=== PATIENT | female | born 1955 | race Caucasian/White ===

== ENCOUNTER → 2016-08-24 | Outpatient (CLI) | payer OTHER ==
[~2016-08-24] MED LIST: ALBU1NEB10 INH; ASPI-390 PO; ATOR-22 PO; ATRINSX INH; BUPR-267 PO; CETI10TA10 PO; CITA20TA4 PO; DOCU100T PO; FLUT0.0529 NAE; FURO-85 PO; IMT100 PO; LEVO150T9 PO; POLY335025; PRLSR20 PO; TRAM-10 PO
[2016-08-24 17:30] LABS: ALT/SGPT 25 U/L (12-78); AST/SGOT 16 U/L (15-37); BLOOD UREA NITROGEN 16 mg/dl (7-18); BUN/CREATININE RATIO 15.5 (10-20); CALCIUM 9.7 mg/dl (8.5-10.1); CARBON DIOXIDE 26 mmol/L (21-32); CHLORIDE 104 mmol/L (98-107); CHOLESTEROL 208 mg/dl (0-200); GLUCOSE 81 mg/dl (70-99); POTASSIUM 3.9 mmol/L (3.5-5.1); SODIUM 140 mmol/L (136-145); TRIGLYCERIDES 126 mg/dl (0-150); VERY LOW DENSITY LIPOPROT CALC 25 mg/dl
[2016-08-24 17:40] LABS: ALB/GLOB RATIO 1.2 (0.9-2); ALKALINE PHOSPHATASE 98 U/L (45-117); CHOLESTEROL/HDL RATIO 3.4; HDL CHOLESTEROL 61 mg/dl; LDL CHOLESTEROL CALCULATED 122 mg/dl; THYROID STIMULATING HORMONE 0.139 uIu/ml (0.300-4.500)
== END | disposition home or self-care (01) ==
LOC: C.LABBFT 11:49
PROVIDERS: ATTEND Nurse Practitioner
DX: E03.9 Hypothyroidism, unspecified (principal); E78.00 Pure hypercholesterolemia, unspecified

== ENCOUNTER → 2016-10-10 | Outpatient (CLI) | payer OTHER ==
[2016-10-10 18:10] LABS: THYROID STIMULATING HORMONE 0.26 uIu/ml (0.300-4.500)
== END | disposition home or self-care (01) ==
LOC: C.LABBFT 13:40
PROVIDERS: ATTEND Physician Assistant Medical
DX: E03.9 Hypothyroidism, unspecified (principal)

== ENCOUNTER → 2017-03-06 | Outpatient (CLI) | payer OTHER ==
[2017-03-06 17:52] LABS: BASO % 0.3 %; BASO ABS # 0.02 K/uL (0-0.2); COMPLETE YES; EOS % 2.4 %; HEMATOCRIT 47.1 % (37-47); IG% 0.3 %; LYMPH % 30.6 %; LYMPH ABS # 1.77 K/uL (1.2-3.4); MEAN CELL VOLUME 92.2 fL (80-100); MEAN CORPUSCULAR HEMOGLOBIN 29.9 pg (25-34); MEAN CORPUSCULAR HGB CONC 32.5 g/dl (32-36); MEAN PLATELET VOLUME 10.5 fL (7.4-10.4); MONO % 10.2 %; NEUT % 56.2 %; PLATELET COUNT 298 K/uL (130-400); RED BLOOD COUNT 5.11 M/uL (4.2-5.4); WHITE BLOOD COUNT 5.79 K/uL (4.8-10.8)
[2017-03-06 18:08] LABS: BLOOD UREA NITROGEN 21 mg/dl (7-18); BUN/CREATININE RATIO 18.6 (10-20); CALCIUM 9.8 mg/dl (8.5-10.1); CARBON DIOXIDE 30 mmol/L (21-32); CHLORIDE 105 mmol/L (98-107); GLUCOSE 73 mg/dl (70-99); POTASSIUM 4.1 mmol/L (3.5-5.1); SODIUM 140 mmol/L (136-145)
[2017-03-06 18:18] LABS: THYROID STIMULATING HORMONE 0.926 uIu/ml (0.300-4.500)
== END | disposition home or self-care (01) ==
LOC: C.LABBFT 10:59
PROVIDERS: ATTEND Nurse Practitioner
DX: E03.9 Hypothyroidism, unspecified (principal); N64.52 Nipple discharge

== ENCOUNTER → 2017-03-06 | Outpatient (CLI) | payer OTHER | END | disposition home or self-care (01) | LOC: C.LABSPEC 12:26 | PROVIDERS: ATTEND Nurse Practitioner | DX: N64.52 Nipple discharge (principal) ==

== ENCOUNTER → 2017-03-09 | Outpatient (CLI) | payer OTHER ==
--- NOTE | 2017-03-09 13:23 | MAMMOGRAPHY REPORT ---
BILATERAL DIGITAL DIAGNOSTIC MAMMOGRAM TOMOSYNTHESIS WITH CAD AND TARGETED RIGHT ULTRASOUND: 03/09/2017 CLINICAL HISTORY: The patient reports an episode of rust- colored right nipple discharge a few days a go. She has had no further episodes since then. She denies any left nipple discharge or palpable wale mps. The patient also reports right breast tenderness for a long time, which she attributed to exerc ising. History of bilateral reduction mammoplasty. TECHNIQUE: Breast tomosynthesis in addition to standard 2D mammography was performed. Current study was also evaluated with a Computer Aided Detection (CAD) system. Bilateral CC and MLO 2-D and tomosy nthesis images and spot magnification right cc and ML views were obtained. COMPARISON: Comparison is made to exams dated: 03/23/2016 mammogram, 10/09/2014 mammogram, 05/20/2012 m ammogram, 05/22/2011 mammogram, 05/25/2010 ultrasound, and 05/25/2010 mammogram - [facility]. BREAST COMPOSITION: There are scattered areas of fibroglandular density in both breasts. FINDINGS: There are no suspicious masses, calcifications, or areas of architectural distortion noted in either breast mammographically. There has been no significant interval change compared to prior exams. There are stable postsurgical changes from bilateral reduction mammoplasty. Bilateral asymme tries and scattered bilateral benign-appearing calcifications are stable. Linear scar markers denote scars on bilateral breasts. Targeted ultrasound was performed of the right subareolar breast to evaluate for a possible intraduct al mass. The patient reports that the bloody discharge arose from the lower aspect of the nipple. T he breast tissue is markedly heterogeneous on ultrasound which reduces the sensitivity of the exam. In the right 7:00 periareolar breast, there is an oval partially hypoechoic and partially anechoic ma ss which measures 2 x 3 x 6 mm. Immediately adjacent to this is an oval hypoechoic circumscribed 4 x 2 mm solid appearing mass. Papillomas cannot be excluded therefore ultrasound guided biopsy of the masses is recommended for further evaluation (the masses are immediately adjacent to each other and c ould be sampled at the same time). Another possible isoechoic mass versus normal tissue measuring 3 x 4 mm is seen within the right 12:00 periareolar breast. Targeted ultrasound was performed of areas of pain pointed out by the patient in the right 1 and 8:00 breast, which show no suspicious masses o r other suspicious sonographic abnormalities. IMPRESSION: ACR BI-RADS CATEGORY 4: SUSPICIOUS, TARGETED ULTRASOUND ACR BI-RADS CATEGORY 4: SUSPICIO US 1. Two adjacent 6 and 4 mm hypoechoic masses in the right 7:00 periareolar breast. The masses are in determinate in the setting of bloody nipple discharge and therefore ultrasound guided biopsy is recom mended for further evaluation (the two masses can be sampled at the same time given that they are imm ediately adjacent to each other). If the masses do not yield papillomas and therefore do not account for bloody discharge, then further evaluation may be needed including surgical consultation and/or M RI. 2. No suspicious mammographic or sonographic abnormality to explain right breast pain. Recommend cl inical follow-up. 3. No mammographic evidence of malignancy in the left breast. A phone call was made to the physician's office to confirm faxed results were received. The patient has been verbally notified of the results. She tentatively scheduled the biopsy before leaving the [facility]. Approximately 10% of breast cancers are not detected with mammography. A negative mammographic report should not delay biopsy if a clinically suggestive mass is present. Maddie Wallace M.D. ah/:03/09/2017 12:08:51 Adon: Damaris Chavez, [facility] letter sent: Abnormal 4/5 BI-RADS Code: ACR BI-RADS Category 4: Suspicious Ultrasound BI-RADS: ACR BI-RADS Category 4: Suspici ous
== END | disposition home or self-care (01) ==
LOC: C.MAMM 08:09
PROVIDERS: ATTEND Nurse Practitioner
DX: N64.52 Nipple discharge (principal); N63 Unspecified lump in breast

== ENCOUNTER → 2017-03-15 | Outpatient (CLI) | payer OTHER | END | disposition home or self-care (01) | LOC: C.PAPS 14:02 | PROVIDERS: ATTEND Nurse Practitioner | DX: Z12.4 Encounter for screening for malignant neoplasm of cervix (principal) ==

== ENCOUNTER → 2017-03-20 | Outpatient (CLI) | payer OTHER ==
--- NOTE | 2017-03-20 09:26 | Discharge Instructions ---
Discharge Instructions Procedure Procedure Date: Mar 20, 2017. Reason for visit: Right Mass. Discharge Discharge Date: Mar 20, 2017. Discharge Diagnosis: post right breast ultrasound guided core biopsy Instructions Activity Recommendations: Additional Limitations (see below) Return to School/Work: no limitations Recommended Home Diet: No Limitations Provider Instructions: ACTIVITY RECOMMENDATIONS: * No lifting, pushing, pulling or exercising the affected side for three days. RETURN TO SCHOOL/WORK: * You may return to work/school after the procedure, but do not perform any strenuous activities for 24 to 48 hours. MEDICATIONS: * In the first 24 hours, take Tylenol (two 325 mg) every four to six hours if needed for mild pain (if not allergic to Tylenol). Also use ice pack in the first 24 hours. * On days 2, 3, 4 etc., take ibuprofen for pain and heat. DIET: * Resume previous diet. SPECIAL CARE INSTRUCTIONS: * Keep biopsy site dry for 24 hours. May shower after 24 hours, but do not soak (bathe) incision. * May remove Tegaderm (plastic patch) tomorrow AFTER showering. * Leave the steri-strips on for one week. Allow the steri-strips to fall off by themselves. If not off after one week, you may remove them. You may place a Bandaid crosswise over the strips, if desired. * Apply ice 10 minutes on and 10 minutes off as needed. * Wear a bra at bedtime to sleep more comfortably for 2-3 days. * Your referring physician should have the results after approximately 5 to 7 business days. * Call for unusual bleeding, fever, drainage, etc or if you have any questions call [phone] during normal business hours or after hours call Dr Keane, . FOLLOW UP VISIT: Follow-up with Referring Physician as scheduled. Allergies Coded Allergies: Penicillins (Verified Allergy, Unknown, 06/07/10) Sulfa Drugs (Verified Allergy, Unknown, 06/07/10) Uncoded Allergies: ANALG/ANTIPYRET (Allergy, Mild, 09/10/09) ?PAIN MED [place] Recommendations: Call your doctor if: * Temperature above 101 degrees * Pain not relieved by pain medicine ordered * There is increased drainage or redness from any incision * You have any unanswered questions or concerns. Your Doctors Instructions noted above were prepared by provider Ana Rosa Keane. Patient Signature Section: Patient Instructions Signature Page Елена Flores Patient (or Guardian) Signature/Date: I have read and understand the instructions given to me by my caregivers. Caregiver/RN/Doctor Signature/Date: The above-named patient and/or guardian has received patient instructions on this date. + Original Patient Signature Page (only) stays with chart. Please make copy for patient.
--- NOTE | 2017-03-20 14:36 | MAMMOGRAPHY REPORT ---
THIS REPORT HAS BEEN AMENDED. ULTRASOUND GUIDED BIOPSY RIGHT BREAST: 03/20/2017 CLINICAL HISTORY: 61-year-old woman with a history of bloody right nipple discharge presents for biop sy of 2 adjacent hypoechoic subcentimeter masses in the 7:00 periareolar right breast. COMPARISON: Comparison is made to exams dated: 03/09/2017 ultrasound, 03/09/2017 mammogram, 03/23/2016 ma mmogram, 10/09/2014 mammogram, 05/20/2012 mammogram, and 05/22/2011 mammogram - [facility]. PATIENT CONSENT: The procedure, risks and benefits were discussed with the patient and informed conse nt was obtained both verbally and in writing. Specific risks to this procedure include: bleeding, in fection, puncture of adjacent structure, nontarget biopsy, sampling error, pain, metal allergy and me dication reaction. PROCEDURE DESCRIPTION: A time out was performed and the right breast was agreed as the site of biopsy . The skin was prepped and draped in the usual sterile fashion. The 2 adjacent hypoechoic possible in traductal masses in the 7:00 periareolar right breast was chosen as the target for biopsy. Subcutaneo us and intraparenchymal 1% buffered lidocaine, with and without epinephrine, was administered as loca l anesthesia. A skin incision was made. Through the incision, 2 samples were taken with a 12 gauge C elero biopsy device. After the first biopsy pass there is a large amount of bleeding and the biopsy target was mostly obscured. A second biopsy pass was taken adjacent to the tract from the first pass and then a ribbon shaped metallic marker was placed at the biopsy site. Hemostasis was achieved afte r manual compression. The patient tolerated the procedure well and there was no immediate complicatio n. The samples were sent to the pathology department in an appropriately labeled container. Postprocedure right CC and ML views were obtained. A new ribbon-shaped metallic biopsy marker is see n in the subareolar right breast. There is a 6 x 5 cm hematoma at the biopsy site. IMPRESSION: ULTRASOUND GUIDED BIOPSY Status post ultrasound guided core biopsy of a possible intraductal mass in the 7:00 periareolar righ t breast, with biopsy marker placed at the site. The 2 adjacent subcentimeter hypoechoic possible in traductal masses were obscured due to bleeding during the biopsy. Pending pathology results, additio nal workup may be needed to determine the origin of the symptom of bloody nipple discharge and furthe r recommendations will be made when pathology results are available. The patient will receive notification of the results from her referring physician. Ana Rosa Keane M.D. ay/:03/20/2017 09:41:17 Financial Aid Manager: Ameena SHIELDS (R)(Elder), [facility] AMENDMENT: 03/28/2017 Ana Rosa Keane M.D. Pathology results from the ultrasound-guided core biopsy of a possible intraductal mass within 2 monik cent prominent ducts in the 7:00 periareolar right breast yielded fibrocystic change with apocrine me taplasia. No tumor is seen. The pathology results could be concordant with the imaging appearance. However, these findings do not explain the reported single episode of reddish brownish right nipple discharge. Clinical follow-up is therefore needed and if the nipple discharge persists, consider misti gical consultation versus breast MRI for definitive characterization.
--- NOTE | 2017-03-20 14:36 | MAMMOGRAPHY REPORT ---
UNILATERAL RIGHT DIGITAL DIAGNOSTIC MAMMOGRAM TOMOSYNTHESIS: 03/20/2017 CLINICAL HISTORY: Status post ultrasound guided core biopsy in the 7:00 periareolar right breast. Jayden hurtado has a history of right nipple discharge. Please refer to the report from right breast ultrasound guided core biopsy performed at the same time for full detail. IMPRESSION: POST PROCEDURE IMAGING FOR MARKER PLACEMENT Please refer to the report from right breast ultrasound guided core biopsy performed at the same time for full detail. Approximately 10% of breast cancers are not detected with mammography. A negative mammographic report should not delay biopsy if a clinically suggestive mass is present. Ana Rosa Keane M.D. ay/:03/20/2017 09:27:13 Salesperson Wigs: Ameena SHIELDS(Robert)(Elder), [facility] BI-RADS Code: Post Procedure Imaging For Marker Placement
== END | disposition home or self-care (01) ==
LOC: C.MAMM 08:32
PROVIDERS: ATTEND Nurse Practitioner
DX: R92.8 Other abnormal and inconclusive findings on diagnostic imaging of breast (principal); N63 Unspecified lump in breast

== ENCOUNTER → 2017-04-06 | Outpatient (CLI) | payer OTHER ==
[2017-04-06 12:32] LABS: BLOOD UREA NITROGEN 21 mg/dl (7-18); CREATININE 0.96 mg/dl (0.60-1.20)
== END | disposition home or self-care (01) ==
LOC: C.LABBFT 08:31
PROVIDERS: ATTEND Physician Assistant Medical
DX: I10 Essential (primary) hypertension (principal); N64.52 Nipple discharge; N64.4 Mastodynia

== ENCOUNTER → 2017-04-10 | Outpatient (CLI) | payer OTHER ==
[~2017-04-10] MED LIST changes: +GADAVIST IV PRN
--- NOTE | 2017-04-11 13:50 | MAMMOGRAPHY REPORT ---
BREAST MRI OF BOTH BREASTS : 04/10/2017 CLINICAL HISTORY: 62-year-old woman who initially presented with rust colored right nipple discharge. She underwent diagnostic workup and subsequent biopsy which yielded benign pathology results. Martinez tu, no explanation for the nipple discharge and she presents for further assessment with breast MRI. COMPARISON: Comparison is made to exams dated: 03/20/2017 ultrasound biopsy, 03/09/2017 ultrasound, 03/09 mammogram, 03/23/2016 mammogram, 10/09/2014 mammogram, and 05/20/2012 mammogram - [facility]. TECHNIQUE: Using a 1.5 [place] magnet and dedicated breast coil, multisequence axial images were obtain ed through the breasts. After uneventful IV administration of 12.5 mL of Gadavist, dynamic multiphas e contrast-enhanced axial images, and sagittal postcontrast were obtained. Temporal subtraction axia l images and 3-D MIP images are provided. Everything was then reviewed on a 3-D workstation, [employer]. FINDINGS: Right breast: There is mild background parenchymal enhancement. Evidence of prior reduction mammopla sty. There is a multiloculated fluid collection within the anterior right breast, that is T2 hyperin tense, T1 hyperintense and nonenhancing, compatible with postbiopsy hematoma. It measures approximat juaquin 5 x 6 x 4 cm. There is mild non mass enhancement surrounding and nearly all of the locules of he matoma, which most likely represents postbiopsy change and secondary to hematoma given that pathology results were benign. Nevertheless, this lowers sensitivity for a small intraductal mass or suspicio us non-mass enhancement in the right breast. Within these limitations, no obvious enhancing mass or obvious intraductal mass is identified. No focal skin thickening or nipple retraction. No right axi llary lymphadenopathy. Left breast: There is mild background parenchymal enhancement. Evidence of prior reduction mammoplas ty. There is no evidence of a suspicious enhancing mass, suspicious non-mass enhancement, architectu ral distortion or suspicious kinetics in the left breast. No suspicious left axillary lymphadenopath y. IMPRESSION: ACR-BI-RADS CATEGORY 3: PROBABLY BENIGN 1. There is a 5 x 6 x 4 cm postbiopsy hematoma in the anterior right breast, with mild non-mass enha ncement surrounding the multiple loculations of the hematoma, most compatible with post-biopsy change . However, this lowers the sensitivity of the exam for detection of a small intraductal mass or susp icious non-mass enhancement. Although no suspicious findings are currently identified, continued cli nical follow-up is recommended. If the patient experiences any more episodes of nipple discharge, lucas rgical consultation is recommended. Otherwise, would recommend a follow-up breast MRI to ensure stab ility in 6 months. 2. No MRI evidence of malignancy in the left breast. The patient will receive written notification of the results. Ana Rosa Keane M.D. ay/:04/10/2017 17:49:54 Publisher Assistant: is technician, [facility] letter sent: Follow Up Recommended 3 BI-RADS Code: ACR-BI-RADS Category 3: Probably Benign
== END | disposition home or self-care (01) ==
LOC: C.MRI 14:01
PROVIDERS: ATTEND Physician Assistant Medical
DX: N64.4 Mastodynia (principal); N64.52 Nipple discharge; N64.89 Other specified disorders of breast

== ENCOUNTER → 2017-04-26 | Outpatient (CLI) | payer OTHER ==
[~2017-04-26] MED LIST changes: -GADAVIST IV PRN
--- NOTE | 2017-04-26 10:27 | DIAGNOSTIC IMAGING REPORT ---
THORACIC SPINE 3 VIEWS ROUTINE HISTORY: Pain M54.2 Neck [id number] COMPARISON: None. FINDINGS: Mild scoliosis. Moderate degenerative disc change throughout the entire thoracic region. No evidence for compression deformity. IMPRESSION: Moderate degenerative change. Mild scoliosis. No acute process. The above report was generated using voice recognition software. It may contain grammatical, syntax or spelling errors. Electronically signed by: Ag Han M.D. 04/26/2017 10:26 AM Dictated Date/Time: 04/26/2017 10:25 AM
--- NOTE | 2017-04-26 10:32 | DIAGNOSTIC IMAGING REPORT ---
C-SPINE ROUTINE 4 OR 5 VIEWS CLINICAL HISTORY: Neck pain. COMPARISON STUDY: No previous studies for comparison. FINDINGS: There is straightening of the normal cervical lordosis. No fracture or suspicious lesion is identified. [id number] multilevel degenerative disc disease and facet arthrosis within the cervical spine is noted. Multilevel bony neural foraminal narrowing is most pronounced at the right C5-C6 and C6-C7 neural foramen. IMPRESSION: 1. No acute cervical spine fracture or subluxation. 2. Mild to moderate multilevel degenerative disc disease and facet arthrosis of the cervical spine. 3. Moderate to severe bony neural foraminal narrowing of the right C5-C6 and C6-C7 neural foramen. Electronically signed by: Anton Glez M.D. 04/26/2017 10:31 AM Dictated Date/Time: 04/26/2017 10:29 AM
== END | disposition home or self-care (01) ==
LOC: C.RAD1850 10:02
PROVIDERS: ATTEND Nurse Practitioner
DX: M50.90 Cervical disc disorder, unspecified, unspecified cervical region (principal); M99.71 Connective tissue and disc stenosis of intervertebral foramina of cervical region

== ENCOUNTER → 2017-07-11 | Outpatient (CLI) | payer OTHER ==
[2017-07-11 12:49] LABS: ALT/SGPT 32 U/L (12-78); BLOOD UREA NITROGEN 20 mg/dl (7-18); C-REACTIVE PROTEIN 0.77 mg/dl (0-0.29); CALCIUM 9.6 mg/dl (8.5-10.1); CARBON DIOXIDE 28 mmol/L (21-32); CHLORIDE 104 mmol/L (98-107); CREATININE 0.95 mg/dl (0.60-1.20); GLUCOSE 82 mg/dl (70-99); SODIUM 137 mmol/L (136-145)
[2017-07-11 12:52] LABS: ALB/GLOB RATIO 1.2 (0.9-2); ALKALINE PHOSPHATASE 86 U/L (45-117); AST/SGOT 19 U/L (15-37)
[2017-07-11 13:20] LABS: BASO % 0.3 %; BASO ABS # 0.02 K/uL (0-0.2); COMPLETE YES; EOS % 1.7 %; HEMATOCRIT 46.2 % (37-47); IG% 0.2 %; LYMPH ABS # 1.51 K/uL (1.2-3.4); MEAN CELL VOLUME 92.6 fL (80-100); MEAN CORPUSCULAR HEMOGLOBIN 30.3 pg (25-34); MEAN CORPUSCULAR HGB CONC 32.7 g/dl (32-36); MONO % 10.5 %; NEUT % 63.3 %; PLATELET COUNT 287 K/uL (130-400); RED BLOOD COUNT 4.99 M/uL (4.2-5.4); WHITE BLOOD COUNT 6.29 K/uL (4.8-10.8)
== END | disposition home or self-care (01) ==
LOC: C.LABBFT 07:02
PROVIDERS: ATTEND Nurse Practitioner
DX: R10.84 Generalized abdominal pain (principal)

== ENCOUNTER → 2017-07-12 | Outpatient (CLI) | payer OTHER ==
[~2017-07-12] MED LIST changes: +OPTIRAY 320 IV PRN
--- NOTE | 2017-07-12 16:49 | DIAGNOSTIC IMAGING REPORT ---
CT SCAN OF THE ABDOMEN AND PELVIS WITH IV CONTRAST CLINICAL HISTORY: Generalized abdominal pain. Diarrhea. COMPARISON STUDY: Abdominal CT dated 03/09/2008. TECHNIQUE: Following the IV administration of 91 cc of Optiray 320, CT scan of the abdomen and pelvis is performed from the lung bases to the proximal femora. Images are reviewed in the axial, sagittal, and coronal planes. IV contrast was administered without complication. A dose lowering technique was utilized adhering to the principles of ALARA. The examination is degraded by large body habitus, and by streak artifact from the body wall abutting the CT gantry. CT DOSE: 1708.03 mGy.cm FINDINGS: Lung bases: The heart is normal in size and without pericardial effusion. A small calcified granuloma is incidentally noted in the left lower lobe. The lung bases are otherwise clear. Liver: The contrast-enhanced liver is top normal in size measuring 18 cm in length. The liver demonstrates diffusely diminished attenuation consistent with hepatic steatosis. There is no intrahepatic biliary ductal dilatation. The hepatic veins and portal veins are patent. Gallbladder: Surgically absent noting clips in the gallbladder fossa. Spleen: Normal in size and attenuation. Pancreas: Unremarkable. Adrenal glands: Unremarkable. Kidneys: The contrast enhanced kidneys demonstrate cortical atrophy and are without hydronephrosis. The kidneys enhance symmetrically. Abdominal vasculature: The abdominal aorta is normal in course and caliber noting scattered foci of atherosclerotic calcification. Bowel: There is mild to moderate colonic fecal retention. No bowel obstruction is seen. The appendix is well-visualized and normal. Peritoneum: There is no intraperitoneal free air or abdominal ascites. There is a fat-containing umbilical hernia. Lymphadenopathy: None. Pelvic viscera: The bladder is normal as visualized. The uterus is surgically absent. No adnexal lesion is seen. Skeletal structures: No lytic or blastic lesions are seen. Sclerotic change is noted in the sacroiliac joints. There is mild lumbosacral spondylosis. IMPRESSION: 1. There are no acute infectious or inflammatory findings in the abdomen or pelvis. 2. Hepatic steatosis. Electronically signed by: Antoine Roger M.D. 07/12/2017 4:48 PM Dictated Date/Time: 07/12/2017 4:44 PM
== END | disposition home or self-care (01) ==
LOC: C.CTS 14:15
PROVIDERS: ATTEND Nurse Practitioner
DX: R10.84 Generalized abdominal pain (principal); R19.7 Diarrhea, unspecified; K76.0 Fatty (change of) liver, not elsewhere classified

== ENCOUNTER → 2017-09-18 | Outpatient (CLI) | payer OTHER ==
[~2017-09-18] MED LIST changes: -OPTIRAY 320 IV PRN
[2017-09-18 12:51] LABS: HEMATOCRIT 48.9 % (37-47); HEMOGLOBIN 16.1 g/dL (12.0-16.0); MEAN CELL VOLUME 91.7 fL (80-100); MEAN CORPUSCULAR HEMOGLOBIN 30.2 pg (25-34); MEAN CORPUSCULAR HGB CONC 32.9 g/dl (32-36); PLATELET COUNT 291 K/uL (130-400); RED CELL DISTRIBUTION WIDTH CV 13.3 % (11.5-14.5); RED CELL DISTRIBUTION WIDTH SD 44.4 fL (36.4-46.3); WHITE BLOOD COUNT 5.99 K/uL (4.8-10.8)
[2017-09-18 13:22] LABS: ALBUMIN 3.9 gm/dl (3.4-5.0); ALKALINE PHOSPHATASE 106 U/L (45-117); ALT/SGPT 27 U/L (12-78); BLOOD UREA NITROGEN 22 mg/dl (7-18); CALCIUM 9.6 mg/dl (8.5-10.1); CARBON DIOXIDE 31 mmol/L (21-32); CHOLESTEROL 206 mg/dl (0-200); CREATININE 1.03 mg/dl (0.60-1.20); GLUCOSE 84 mg/dl (70-99); POTASSIUM 4.3 mmol/L (3.5-5.1); SODIUM 138 mmol/L (136-145)
[2017-09-18 13:33] LABS: AST/SGOT 16 U/L (15-37); LDL CHOLESTEROL CALCULATED 126 mg/dl; TOTAL PROTEIN 7.8 gm/dl (6.4-8.2)
== END | disposition home or self-care (01) ==
LOC: C.LABBFT 07:41
PROVIDERS: ATTEND Nurse Practitioner
DX: E03.9 Hypothyroidism, unspecified (principal); E78.00 Pure hypercholesterolemia, unspecified; I10 Essential (primary) hypertension

== ENCOUNTER → 2017-10-16 | Outpatient (CLI) | payer OTHER ==
[~2017-10-16] MED LIST changes: +GADAVIST IV PRN
--- NOTE | 2017-10-17 15:37 | MAMMOGRAPHY REPORT ---
BREAST MRI OF BOTH BREASTS : 10/16/2017 CLINICAL HISTORY: 62-year-old woman presents with a history of right nipple discharge, please reevalu ate. She has a history of an episode of right bloody nipple discharge in which diagnostic ultrasound noted a possible intraductal mass at the 7:00 anterior subareolar right breast which was biopsied an d yielded benign fibrocystic change. A subsequent MRI failed to demonstrate a definite intraductal m ass but there was a large postbiopsy hematoma. COMPARISON: Comparison is made to exams dated: 03/20/2017 mammogram, 03/20/2017 ultrasound biopsy, 03/09 ultrasound, 03/09/2017 mammogram, 03/23/2016 mammogram, and 10/09/2014 mammogram - [facility]. TECHNIQUE: Using a 1.5 [place] magnet and dedicated breast coil, multisequence axial images were obtain ed through the breasts. After uneventful IV administration of 13 mL of Gadavist, dynamic multiphase contrast-enhanced axial images, and sagittal postcontrast were obtained. Temporal subtraction axial images and 3-D MIP images are provided. Everything was then reviewed on a 3-D workstation, [employer]. FINDINGS: Right breast: There is minimal background parenchymal enhancement. The previously observed 5 x 6 x 4 cm postbiopsy hematoma in the anterior right breast has resolved. There is a small focus of suscept ibility artifact in the 7:00 anterior/subareolar right breast denoting the site of prior benign ultra sound-guided core biopsy. There is a tubular, branching, intrinsically T1 hyperintense nonenhancing lesion in the 6:00 anterior/subareolar right breast measuring approximately 2.6 x 1.3 cm. This could represent blood within a mildly prominent duct or could be due to prior biopsy. No definite enhancing intraductal mass is currently seen. However, correlation with the patient's clinical history is nee ded. If she is still experiencing bloody nipple discharge, surgical consultation for possible duct e xploration is recommended. No other suspicious enhancing masses, non-mass enhancement or suspicious kinetics are identified in the right breast. No focal skin thickening or nipple retraction. No susp icious right axillary lymphadenopathy. Left breast: There is minimal background parenchymal enhancement. There is no suspicious enhancing m ass, non-mass enhancement, architectural distortion or suspicious kinetics in the left breast. No fo tania skin thickening or nipple retraction. No suspicious left axillary lymphadenopathy. IMPRESSION: ACR-BI-RADS CATEGORY 3: PROBABLY BENIGN 1. A 2.6 x 1.3 cm branching tubular nonenhancing structure is noted in the 6:00 anterior/subareolar right breast which could represent blood within a mildly ectatic duct, although no intraductal enhanc ing masses currently seen. Correlation with clinical history is needed and if the patient is still e xperiencing right bloody nipple discharge, surgical consultation for possible duct exploration is rec ommended. 2. Overall, there is no definite MRI evidence of malignancy in the breasts. If the patient is no lo nger symptomatic and has not had any other episodes of bloody nipple discharge, could consider return ing to annual screening mammography, due in March 2018. The patient will receive written notification of the results. Ana Rosa Keane M.D. ay/:10/16/2017 20:06:08 [employer] Plant Maintainer: spinneret cleaner, [facility] letter sent: Follow Up Recommended 3 BI-RADS Code: ACR-BI-RADS Category 3: Probably Benign
== END | disposition home or self-care (01) ==
LOC: C.MRI 08:33
PROVIDERS: ATTEND Nurse Practitioner
DX: N64.52 Nipple discharge (principal); N64.9 Disorder of breast, unspecified

== ENCOUNTER → 2018-03-12 | Outpatient (CLI) | payer OTHER ==
[~2018-03-12] MED LIST changes: -GADAVIST IV PRN
--- NOTE | 2018-03-13 13:37 | MAMMOGRAPHY REPORT ---
BILATERAL DIGITAL SCREENING MAMMOGRAM TOMOSYNTHESIS WITH CAD: 03/12/2018 CLINICAL HISTORY: Routine screening. Patient has no complaints. TECHNIQUE: The study was acquired using full field digital technology and interpreted from soft copy. Breast tomosynthesis in addition to standard 2D mammography was performed. Current study was also ev aluated with a Computer Aided Detection (CAD) system. COMPARISON: Comparison is made to exams dated: 03/20/2017 mammogram, 03/09/2017 mammogram, 03/23/2016 ma mmogram, 10/09/2014 mammogram, 05/20/2012 mammogram, and 05/22/2011 mammogram - [facility]. BREAST COMPOSITION: There are scattered areas of fibroglandular density in both breasts. FINDINGS: Status post bilateral reduction mammoplasty. There is a stable ribbon-shaped biopsy marker clip in the right breast. There is a stable nodular glandular pattern of the breasts. No new suspi cious masses, asymmetries, calcifications or areas of architectural distortion identified bilaterally . IMPRESSION: ACR BI-RADS CATEGORY 1: NEGATIVE 1. Stable mammographic appearance of the breasts including postsurgical changes bilaterally, and a s table ribbon-shaped biopsy marker clip in the 6:00 anterior/subareolar right breast. As long as ther e are no new reported episodes of nipple discharge, would recommend bilateral screening mammography i n 1 year. (03/13/2019) The patient will receive written notification of the results. Some breast cancers are not detected with mammography. A negative mammographic report should not shelbi y biopsy if a clinically suggestive mass is present. Ana Rosa Keane M.D. ay/:03/12/2018 15:50:11 Creel Cleaner: RT Deja(R)(M), [facility] letter sent: Normal 1/2 BI-RADS Code: ACR BI-RADS Category 1: Negative
== END | disposition home or self-care (01) ==
LOC: C.MAMM 10:00
PROVIDERS: ATTEND Nurse Practitioner
DX: Z12.31 Encounter for screening mammogram for malignant neoplasm of breast (principal); Z98.890 Other specified postprocedural states

== ENCOUNTER → 2018-03-15 | Outpatient (CLI) | payer OTHER ==
[2018-03-15 17:24] LABS: BASO % 0.3 %; BASO ABS # 0.02 K/uL (0-0.2); EOS % 2.6 %; EOS ABS # 0.16 K/uL (0-0.5); HEMATOCRIT 45.7 % (37-47); HEMOGLOBIN 14.6 g/dL (12.0-16.0); IG# 0.01 K/uL (0.00-0.02); LYMPH % 24.9 %; LYMPH ABS # 1.53 K/uL (1.2-3.4); MEAN CELL VOLUME 93.6 fL (80-100); MEAN CORPUSCULAR HEMOGLOBIN 29.9 pg (25-34); MEAN CORPUSCULAR HGB CONC 31.9 g/dl (32-36); MEAN PLATELET VOLUME 10.6 fL (7.4-10.4); MONO % 9.3 %; MONO ABS # 0.57 K/uL (0.11-0.59); NEUT % 62.7 %; NEUT ABS # 3.85 K/uL (1.4-6.5); PLATELET COUNT 326 K/uL (130-400); RED CELL DISTRIBUTION WIDTH CV 13.3 % (11.5-14.5); RED CELL DISTRIBUTION WIDTH SD 45.5 fL (36.4-46.3); WHITE BLOOD COUNT 6.14 K/uL (4.8-10.8)
[2018-03-15 17:44] LABS: BLOOD UREA NITROGEN 17 mg/dl (7-18); CARBON DIOXIDE 28 mmol/L (21-32); CREATININE 1.03 mg/dl (0.60-1.20); GLUCOSE 94 mg/dl (70-99); POTASSIUM 3.8 mmol/L (3.5-5.1); SODIUM 139 mmol/L (136-145)
== END | disposition home or self-care (01) ==
LOC: C.LABBFT 12:25
PROVIDERS: ATTEND Physician Assistant Medical
DX: I10 Essential (primary) hypertension (principal); M25.50 Pain in unspecified joint

== ENCOUNTER 2023-11-01 08:28 | Observation (INO) ==
--- NOTE | 2023-09-20 13:15 | PAT Medication Instructions ---
Medication Instructions Date of Service September 20, 2023 Home Medications Medication Instructions Recorded triamcinolone acetonide 55 mcg 1 spray intranasal DAILY #16.9 mL 12/07/21 nasal spray aerosol (Nasacort) diclofenac sodium 1 % topical gel 2 g topical QID PRN pain #800 grams 12/21/21 dicyclomine 10 mg capsule 10 - 20 mg (1 - 2 x 10 mg) PO Q4H 02/14/22 PRN IBS #360 caps atorvastatin 40 mg tablet 40 mg PO QAM #90 tabs 12/04/22 furosemide 20 mg tablet 20 mg PO QAM #90 tabs 12/04/22 sucralfate 100 mg/mL oral 10 ml PO QID PRN abdominal 12/21/22 suspension (Carafate) discomfort #1,260 mL levothyroxine 150 mcg tablet 150 mcg PO QAM #90 tabs 02/21/23 irbesartan 75 mg tablet 37.5 mg (1/2 x 75 mg) PO QAM #90 03/12/23 tabs bupropion HCl 150 mg 24 hr tablet, 150 mg PO QAM #30 tabs 04/06/23 extended release naltrexone 50 mg tablet 25 mg (1/2 x 50 mg) PO DAILY #45 08/27/23 tabs cetirizine 10 mg tablet 10 mg PO QAM mupirocin 2 % topical ointment 1 appln topical UD PRN Skin Irritation triamcinolone acetonide 55 mcg nasal spray aerosol (Nasacort) 1 spray intranasal DAILY diclofenac sodium 1 % topical gel 2 g topical QID PRN pain dicyclomine 10 mg capsule 10 - 20 mg (1 - 2 x 10 mg) PO Q4H PRN IBS cholecalciferol (vitamin D3) 25 mcg (1,000 unit) capsule 25 mcg PO QAM atorvastatin 40 mg tablet 40 mg PO QAM furosemide 20 mg tablet 20 mg PO QAM sucralfate 100 mg/mL oral suspension (Carafate) 10 ml PO QID PRN abdominal discomfort levothyroxine 150 mcg tablet 150 mcg PO QAM irbesartan 75 mg tablet 37.5 mg (1/2 x 75 mg) PO QAM bupropion HCl 150 mg 24 hr tablet, extended release 150 mg PO QAM docusate sodium 2 tabs PO DAILY naltrexone 50 mg tablet 25 mg (1/2 x 50 mg) PO DAILY betamethasone dipropionate 0.05 % topical cream 0.05 applic topical UD PRN Skin Irritation multivitamin with minerals (Hair,Skin and Nails tablet) 1 tab PO QAM omeprazole 20 mg capsule,delayed release 40 mg PO QAM Continue as directed naltrexone 50 mg tablet 25 mg (1/2 x 50 mg) PO DAILY ASK your surgeon for instructions diclofenac sodium 1 % topical gel 2 g topical QID PRN pain STOP taking 24 hours before surgery mupirocin 2 % topical ointment 1 appln topical UD PRN Skin Irritation betamethasone dipropionate 0.05 % topical cream 0.05 applic topical UD PRN Skin Irritation DO NOT take the morning of surgery cetirizine 10 mg tablet 10 mg PO QAM dicyclomine 10 mg capsule 10 - 20 mg (1 - 2 x 10 mg) PO Q4H PRN IBS cholecalciferol (vitamin D3) 25 mcg (1,000 unit) capsule 25 mcg PO QAM furosemide 20 mg tablet 20 mg PO QAM sucralfate 100 mg/mL oral suspension (Carafate) 10 ml PO QID PRN abdominal discomfort irbesartan 75 mg tablet 37.5 mg (1/2 x 75 mg) PO QAM docusate sodium 2 tabs PO DAILY multivitamin with minerals (Hair,Skin and Nails tablet) 1 tab PO QAM Take morning of surgery With a small sip of water, OTHERWISE NOTHING TO EAT OR DRINK AFTER MIDNIGHT: triamcinolone acetonide 55 mcg nasal spray aerosol (Nasacort) 1 spray intranasal DAILY atorvastatin 40 mg tablet 40 mg PO QAM levothyroxine 150 mcg tablet 150 mcg PO QAM bupropion HCl 150 mg 24 hr tablet, extended release 150 mg PO QAM omeprazole 20 mg capsule,delayed release 40 mg PO QAM Take evening before surgery dicyclomine 10 mg capsule 10 - 20 mg (1 - 2 x 10 mg) PO Q4H PRN IBS (if needed) sucralfate 100 mg/mL oral suspension (Carafate) 10 ml PO QID PRN abdominal discomfort (if needed) Other Notes If you have any questions please call us at [phone] or [phone] or [phone] or [phone]
--- NOTE | 2023-09-28 10:10 | Anesthesiology Consultation ---
Date of Service September 28, 2023 Assessment & Plan (1) Encounter for pre-operative examination: - Infectious disease screening: Per assessment on 09/28/23: No known infectious disease contacts or current infectious disease symptoms. No noted recent Covid positive test result. - Outpatient joint assessment: Pt currently scheduled for inpatient pathway. If surgeon requests review for outpatient joint pathway, patient is not recommended candidate for outpatient joint program from anesthesia standpoint based on available information. Chart Review Chart Review: Acceptable Risk for Surgery and Patient seen in Pre Admission Testing Teaching & Discussion Pre-Anesthesia Teaching/Discussion Notes: Instructed NPO after midnight before surgery,except medications with 15 cc of water. Medication instructions provided according to the PAT guidelines. History Surgery Operation Date: 11/01/23 07:00 Proposed Procedures p Left Total Knee Arthroplasty - Servando Escoto MD Height/Weight Height: 5 ft 5 in Weight: 120.3 kg Allergies Allergy/AdvReac Type Severity Reaction Status Date / Time Penicillins Allergy Mild Itching Verified 09/27/23 12:09 Sulfa (Sulfonamide Allergy Mild Itching Verified 09/27/23 12:09 Antibiotics) amoxicillin AdvReac Mild Itching Verified 09/27/23 12:09 doxycycline AdvReac Mild Itching Verified 09/27/23 12:09 erythromycin base AdvReac Mild Itching Verified 09/27/23 12:09 morphine AdvReac Mild Itching Verified 09/27/23 12:09 prednisone AdvReac Mild Itching Verified 09/27/23 12:09 naltrexone AdvReac Nausea Verified 09/28/23 10:44 Medications Home Medications Medication Instructions Recorded Confirmed Last Taken cetirizine 10 mg tablet 10 mg PO QAM 04/25/19 09/19/23 Unknown mupirocin 2 % topical ointment 1 appln topical UD PRN Skin 07/14/20 09/19/23 Unknown Irritation triamcinolone acetonide 55 mcg 1 spray intranasal DAILY #16.9 mL 12/07/21 09/19/23 Unknown nasal spray aerosol (Nasacort) diclofenac sodium 1 % topical gel 2 g topical QID PRN pain #800 grams 12/21/21 09/19/23 Unknown dicyclomine 10 mg capsule 10 - 20 mg (1 - 2 x 10 mg) PO Q4H 02/14/22 09/19/23 Unknown PRN IBS #360 caps cholecalciferol (vitamin D3) 25 25 mcg PO QAM 06/15/22 09/19/23 Unknown mcg (1,000 unit) capsule atorvastatin 40 mg tablet 40 mg PO QAM #90 tabs 12/04/22 09/19/23 Unknown furosemide 20 mg tablet 20 mg PO QAM #90 tabs 12/04/22 09/19/23 Unknown sucralfate 100 mg/mL oral 10 ml PO QID PRN abdominal 12/21/22 09/19/23 Unknown suspension (Carafate) discomfort #1,260 mL levothyroxine 150 mcg tablet 150 mcg PO QAM #90 tabs 02/21/23 09/19/23 Unknown irbesartan 75 mg tablet 37.5 mg (1/2 x 75 mg) PO QAM #90 03/12/23 09/19/23 Unknown tabs bupropion HCl 150 mg 24 hr tablet, 150 mg PO QAM #30 tabs 04/06/23 09/19/23 Unknown extended release docusate sodium 2 tabs PO DAILY 06/18/23 09/19/23 Unknown betamethasone dipropionate 0.05 % 0.05 applic topical UD PRN Skin 09/19/23 09/19/23 Unknown topical cream Irritation multivitamin with minerals 1 tab PO QAM 09/19/23 09/19/23 Unknown (Hair,Skin and Nails tablet) omeprazole 20 mg capsule,delayed 40 mg PO QAM 09/19/23 09/19/23 Unknown release Past Medical History Medical History Acid reflux Anxiety Depression Herniated disc x2 (lumbar + thoracic) Hiatal hernia History of COVID-19 2021, resolved History of IBS HTN (hypertension) BP improving since weight loss per patient Hx of vertigo Flares with fast movement, lying flat or on left side Hyperlipidemia Hypothyroidism Macular degeneration Migraine Morbid obesity Nasal bleeding Hx ruptured polyp (2019), hx cauterization/sinus surgery (2019) Osteoarthritis Sleep apnea Has device (non-compliant/not using) Umbilical hernia Exercise / Class Metabolic Activity III < 4 Walking/Shop/Light housework Past Family History Family History Mother Family history of diabetes mellitus Sister Family history of diabetes mellitus Brother Myocardial infarction Aunt Family history of esophageal cancer Family history of brain cancer Denies family history of Ovarian cancer Prostate cancer Breast cancer Colorectal cancer Past Surgical History Surgical History History of bilateral breast reduction surgery History of bilateral tubal ligation History of breast biopsy Right History of carpal tunnel release BL History of cholecystectomy History of colonoscopy History of elbow surgery BL History of esophagogastroduodenoscopy (EGD) History of shoulder surgery Left History of sinus surgery 02/2020 History of tonsillectomy History of total abdominal hysterectomy and bilateral salpingo-oophorectomy Lip lesion Excision S/P trigger finger release Right x2 Right ring trigger finger release (08/12/20): MAC at [facility] Past Anesthesia History No Hx of Anesthesia Complications and No Family Hx of Anesthesia Complications History of PONV No Hx of PONV and Hx of Motion Sickness Social History Smoking Status: Former smoker Do You Dip or Chew Tobacco: No Smoking End Date: Quit several years ago Hx Alcohol Use: Yes Alcohol type: wine alcohol intake frequency: holidays/special occasions only Hx Substance Use: No substance use type: does not use Review of Systems Patient denies chest pain, shortness of breath, dyspnea on exertion, fever, chills, cough, wheezing, palpitations. Physical Exam Vital Signs BP 129/79 P 85 TEMP 98.3 SP02 94%RA RESP 16 Physical Full cervical extension range of motion. Full TMJ range of motion. TMD 3 finger breaths Mallampati Score 1 Dentition: several missing sides/molars, upper front caps Lungs: clear throughout to auscultation Cardiac: regular rate and rhythm, no murmurs noted Spine: normal Carotid arteries: negative bruit Extremities: trace non-pitting LE edema Lab Results Anesthesia Preop Results Results Anesthesia Widget: WBC 7.94 K/ul (4.8-10.8) 09/28/23 Hgb 15.0 g/dl (12.0-16.0) 09/28/23 Hct 46.5 % (37.0-47.0) 09/28/23 Plt 361 K/uL (130-400) 09/28/23 Na 138 mmol/L (136-145) 09/28/23 K 4.1 mmol/L (3.5-5.1) 09/28/23 Cl 102 mmol/L (98-107) 09/28/23 CO2 27 mmol/L (21-32) 09/28/23 BUN 22 mg/dl (6-23) 09/28/23 Creat 0.92 mg/dl (0.6-1.2) 09/28/23 Glucose Level 83 mg/dl (70-99(Fasting)) 09/28/23 PT 11.1 Seconds (9.0-12.0) 09/28/23 PTT 29 Seconds (21-31) 09/28/23 INR 1.0 (0.9-1.1) 09/28/23 COVID-19 PCR NEGATIVE (Negative) 08/30/23 Blood Type O Positive 09/28/23 Antibody Screen NEGATIVE 09/28/23 Testing Electrocardiogram Date: 09/28/23 NSR at 79bpm. "Normal ECG" Chest X-Ray Date: 09/28/23 FINDINGS: Cholecystectomy. Degenerative changes of the shoulders and spine. Cardiomediastinal and hilar silhouettes are within normal limits. No p neumothorax, pleural effusion or airspace consolidation. IMPRESSION: No acute process. Echocardiogram Date: 07/01/18 EF 60-65%. Borderline cLVH. Grade I DD. LV wall motion is normal. Mild LAD. Stress Test Date: 07/01/18 Type: DSE Normal dobutamine echocardiogram without evidence of inducible ischemia. 84% MPHR.
--- NOTE | 2023-10-27 09:03 | History & Physical Report ---
Date of Service October 27, 2023 Assessment & Plan (1) Bilateral primary osteoarthritis of knee: 68-year-old female with bilateral knee pain and DJD left side a bit more symptomatic than right. She been through extensive conservative treatments with become less successful and she like to proceed with a left knee replacement. Plan will take her to the operating do left total knee replacement for the risks Mente this procedure explained. She understands and desires to proceed. As far as discharge plans pieced planning on being discharged to home. Her daughter is going to come and stay with her while. As [facility] [place]. Will plan on DVT prophylaxis including thigh-high teds, SCDs, aspirin twice a day. History of Present Illness Chief Complaint: . Bilateral knee pain and discomfort left side greater than the right. Primary Care Provider: ROBLES Knight . The patient is a 68-year-old female who presents for surgical treatment of her left knee. Discussed several year history of increasing bilateral knee pain discomfort with the left side being a little bit worse than the right. She has been through extensive conservative treatment over the past year including multiple injections which provide very temporary relief only. Describes global pain in the knee. Increased with weightbearing. She has difficulty going up and down steps. She has nighttime pain. She does not like to proceed with left knee replacement. Allergies Allergy/AdvReac Type Severity Reaction Status Date / Time Penicillins Allergy Mild Itching Verified 10/15/23 13:27 Sulfa (Sulfonamide Allergy Mild Itching Verified 10/15/23 13:27 Antibiotics) amoxicillin AdvReac Mild Itching Verified 10/15/23 13:27 doxycycline AdvReac Mild Itching Verified 10/15/23 13:27 erythromycin base AdvReac Mild Itching Verified 10/15/23 13:27 morphine AdvReac Mild Itching Verified 10/15/23 13:27 prednisone AdvReac Mild Itching Verified 10/15/23 13:27 naltrexone AdvReac Nausea Verified 10/15/23 13:27 Home Medications Medication Instructions Recorded Confirmed Type cetirizine 10 mg tablet 10 mg PO QAM 04/25/19 10/15/23 History mupirocin 2 % topical ointment 1 appln topical UD PRN Skin 07/14/20 10/15/23 History Irritation triamcinolone acetonide 55 mcg 1 spray intranasal DAILY #16.9 mL 12/07/21 10/15/23 Rx nasal spray aerosol (Nasacort) diclofenac sodium 1 % topical gel 2 g topical QID PRN pain #800 grams 12/21/21 10/15/23 Rx dicyclomine 10 mg capsule 10 - 20 mg (1 - 2 x 10 mg) PO Q4H 02/14/22 10/15/23 Rx PRN IBS #360 caps cholecalciferol (vitamin D3) 25 25 mcg PO QAM 06/15/22 10/15/23 History mcg (1,000 unit) capsule atorvastatin 40 mg tablet 40 mg PO QAM #90 tabs 12/04/22 10/15/23 Rx furosemide 20 mg tablet 20 mg PO QAM #90 tabs 12/04/22 10/15/23 Rx sucralfate 100 mg/mL oral 10 ml PO QID PRN abdominal 12/21/22 10/15/23 Rx suspension (Carafate) discomfort #1,260 mL levothyroxine 150 mcg tablet 150 mcg PO QAM #90 tabs 02/21/23 10/15/23 Rx irbesartan 75 mg tablet 37.5 mg (1/2 x 75 mg) PO QAM #90 03/12/23 10/15/23 Rx tabs bupropion HCl 150 mg 24 hr tablet, 150 mg PO QAM #30 tabs 04/06/23 10/15/23 Rx extended release docusate sodium 2 tabs PO DAILY 06/18/23 10/15/23 History betamethasone dipropionate 0.05 % 0.05 applic topical UD PRN Skin 09/19/23 10/15/23 History topical cream Irritation multivitamin with minerals 1 tab PO QAM 09/19/23 10/15/23 History (Hair,Skin and Nails tablet) omeprazole 20 mg capsule,delayed 40 mg PO QAM 09/19/23 10/15/23 History release Past Med/Surg History Medical History History of COVID-19 2021, resolved Sleep apnea Has device (non-compliant/not using) Hypothyroidism Hyperlipidemia HTN (hypertension) BP improving since weight loss per patient Hx of vertigo Flares with fast movement, lying flat or on left side Hiatal hernia Acid reflux Anxiety Macular degeneration Nasal bleeding Hx ruptured polyp (2019), hx cauterization/sinus surgery (2019) History of IBS Morbid obesity Umbilical hernia Osteoarthritis Herniated disc x2 (lumbar + thoracic) Migraine Depression Surgical History History of sinus surgery 02/2020 Lip lesion Excision History of bilateral tubal ligation S/P trigger finger release Right x2 Right ring trigger finger release (08/12/20): MAC at [facility] History of carpal tunnel release BL History of shoulder surgery Left History of elbow surgery BL History of esophagogastroduodenoscopy (EGD) History of colonoscopy History of cholecystectomy History of bilateral breast reduction surgery History of tonsillectomy History of breast biopsy Right History of total abdominal hysterectomy and bilateral salpingo-oophorectomy Family History Mother Family history of diabetes mellitus Sister Family history of diabetes mellitus Brother Myocardial infarction Aunt Family history of esophageal cancer Family history of brain cancer Denies family history of Ovarian cancer Prostate cancer Breast cancer Colorectal cancer Social History Smoking Status: Former smoker Second Hand Exposure: No; Do You Dip or Chew Tobacco: No; Hx Alcohol Use: Yes Alcohol type: wine Hx Substance Use: No Preferred Language: Paraguayan Communication Ability: Effective Visual Impairment: Limited Hearing Ability: Normal Special Ed Assistant Required: No Beliefs That Will Affect Care: None marital status: / Current Living Situation: Alone Current Living Situation Comment: L[facility]ES AT [facility] IN OWN APARTMENT current occupational status: retired Feels Safe at Home: Yes Diet: regular Dental Care, Regularly: Yes Physical Activity Frequency: 3-4 Times per Week Seatbelt Use: always Assistive Devices: Glasses Review of Systems All systems reviewed & are unremarkable except as noted in HPI & below. Physical Exam . Physical examination shows a pleasant middle-age female. Looks in reasonably good health. Examination of the left knee reveals patient ambulates independently. She got slight valgus alignment to her knee which is increased with weightbearing. She little tenderness laterally. Moderate soft tissue envelope. Small knee effusion. Range of motion 5-1 25. No instability. No pain with hip motion. Constitutional WD/WN, vitals as above Neck trachea midline, no thyromegaly Respiratory normal respiratory effort, lungs clear to auscultation Cardiovascular RRR, no murmur, no edema Gastrointestinal (Abdomen) normal bowel sounds, soft, nontender, no hepatosplenomegaly Results & Data Results & Data Laboratory Results . Diagnostic Findings . X-rays of the left knee were reviewed. Shows advanced lateral compartment DJD. She has complete loss of lateral joint space on the 40 degree flexion films. Got osteophytes primarily laterally. Pretty similar but less severe disease in her right knee. PG Care Time/CCT Total # of Minutes Spent Total Time Spent with Patient: Total time spent is greater than 50% in coordination of care (as documented) at patient's floor/unit and/or counseling patient: Coding Level of Care Code None Diagnoses Bilateral primary osteoarthritis of knee M17.0
[~2023-11-01 08:28] MED LIST changes: -ALBU1NEB10 INH; -ASPI-390 PO; -ATOR-22 PO; -ATRINSX INH; +BUPIVACAINE 0.5 % 5 MG/1 ML PF 10ML VIAL ONE; -BUPR-267 PO; -CETI10TA10 PO; -CITA20TA4 PO; -DOCU100T PO; -FLUT0.0529 NAE; -FURO-85 PO; -IMT100 PO; -LEVO150T9 PO; -POLY335025; -PRLSR20 PO; +ROPIVACAINE 0.5% 5 MG/ML 30 ML VIAL ONE; -TRAM-10 PO
[2023-11-01] MEDS: LR 500ML BOLUS, THEN 15ML/HR IV SCH (09:20)
[2023-11-01] MEDS: FAMOTIDINE 20 MG TAB PO SCH (09:24)
[2023-11-01] MEDS: ACETAMINOPHEN 500 MG TAB PO SCH ×2 (09:24→20:45)
[2023-11-01] MEDS: CeleBREX 200 MG CAP PO SCH (09:24)
[2023-11-01] MEDS: dexAMETHasone**PF** 10 MG/ML VIAL IV SCH (09:25)
[2023-11-01] MEDS: LR 60ML/HR IV SCH (09:25)
[2023-11-01] MEDS: Scopolamine 1 MG TDSY TD SCH (09:25)
[2023-11-01] MEDS: METOCLOPRAMIDE HCL 10 MG TABLET PO SCH (09:25)
[2023-11-01] MEDS ORDERED: Nursing to Pharmacy Communication SCH (09:45)
--- NOTE | 2023-11-01 09:48 | History & Physical Bridge Note ---
Date of Service November 01, 2023 History & Physical Bridge Note I have examined the patient, reviewed the History & Physical and in the interval since the performance of the History & Physical I have noted the following changes of clinical significance: no changes noted
[2023-11-01] MEDS ORDERED: MIDAZOLAM HCL 1 MG/ML 2ML VIAL ONE ×2 (10:20→12:25)
[2023-11-01] MEDS ORDERED: fentaNYL citrate PF 100 MCG/2 ML VIAL ONE (10:20)
[2023-11-01] MEDS ORDERED: ePHEDrine sulfate 50 MG/ML AMP IV PRN (10:54)
[2023-11-01] MEDS ORDERED: ONDANSETRON INJ 2 MG/ML 2 ML VIAL IV PRN ×2 (10:54→16:32)
[2023-11-01] MEDS ORDERED: fentaNYL citrate PF 100 MCG/2 ML VIAL IV PRN (10:54)
[2023-11-01] MEDS ORDERED: ATROPINE SULFATE 0.1 MG/ML 10ML SYR IV PRN (10:54)
[2023-11-01] MEDS ORDERED: PROPOFOL IV EMULSION 10 MG/ML 20 ML VIAL IV ONE (12:18)
[2023-11-01] MEDS: ceFAZolin 3000MG 3,000 MG/72.5 ML BAG IV SCH (12:18)
[2023-11-01] MEDS ORDERED: LIDOCAINE 2% 2 ML VIAL/AMP(20MG/ML) INFIL ONE (12:23)
[2023-11-01] MEDS ORDERED: PHENYLEPHRINE 100MCG/ML 10ML SYR IV ONE (12:42)
[2023-11-01] MEDS ORDERED: ONDANSETRON INJ 2 MG/ML 2 ML VIAL ONE (12:42)
[2023-11-01] MEDS ORDERED: DEXAMETHASONE SOD INJ 4 MG/ML VIAL ONE (12:42)
[2023-11-01] MEDS: ROPIV 0.5% 246mg, Ketorolac 30mg, EPINEPHrine 0.5mg in NSS INFIL SCH (12:50)
[2023-11-01] MEDS: ORTHO JOINT ANESTHETIC ONE (12:50)
[2023-11-01] MEDS: TRANEXAMIC ACID 1,000 MG **IV Intra-op IV SCH (13:33)
--- NOTE | 2023-11-01 14:23 | Operative Report ---
PG Post Operative Report Pre & Post Diagnosis Operation Date: 11/01/23 10:40 Pre-Op Diagnosis: Left Knee Advanced Degenerative Joint Disease Post-Op Diagnosis: Left Knee Advanced Degenerative Joint Disease I identified the patient and participated in the time-out.: Yes Procedure Operation Date: 11/01/23 10:40 Actual Procedures p Left Total Knee Arthroplasty(Left) - Servando Escoto MD Surgeon Servando Escoto MD Production Machinist Gabe Guzman PA-C Estimated Blood Loss 50 Findings Consistent with Post-Op Diagnosis Operative findings revealed large soft tissue envelope. She had extensive grade 4 [id number] disease primarily the lateral compartment with a fixed valgus deformity to her knee. Specimens Left knee sent for pathology. Anesthesia Type Spinal MAC Complications none Disposition Accompanied Patient To Recovery: No Indications Patient is a 68-year-old female is had a long history of bilateral knee pain discomfort is gradually gotten worse over time. She has been through extensive conservative treatment over the years it became less successful. Pains become more debilitating. X-rays show advanced bilateral knee arthritis. She elected proceed with left total knee arthroplasty. Description of Procedure Operative implants consist of: 1 Biomet Vanguard size 65 left posterior stabilized femoral component. 2. Biomet size 71 tibial tray. 3. 10 mm posterior stabilized polyethylene plus insert. 4. 28 x 8 all poly patella. The patient was taken the operating, identified, placed on the operating table in the supine position. All contact areas were appropriately padded. IV antibiotics tried by anesthesia team. A spinal anesthetic and been implemented holding area. Jiang catheter was placed in sterile fashion. A left thigh turn was then placed in the left lower extremities then prepped and draped in usual sterile fashion. The left leg was elevated and exsanguinated with use of an Esmarch and the turn was placed at 300 mmHg. An anterior approach the left knee was then performed to longitudinal incision centered over the patella. Sharp dissection was carried through subcutaneous tissue down the extensor mechanism. A medial p arapatellar arthrotomy incision was made. Some subperiosteal dissection was carried out medially. The fat pad was resected from Neath patella tendon. The lateral patellofemoral ligament was released. Patella subluxated laterally and the knee was flexed. The osteophyte taken off distal femur. ACL PCL were then released from distal femur the tibia subluxated anteriorly. The external tibial alignment jig was then placed on the interface the tibia and adjusted 12 mm medially. Proximal tibial cut was made remove about 3 to 4 mm of bone from the medial side. Tibia sized to a size 71. Will try to maximize coverage due to osteoporosis. Attention drawn the femur. The distal femur examined the sharp drop with intramedullary canal was suction. A left 5 degree valgus cutting guide was placed the distal femoral cutting block was pinned in place. Distal femoral cut was made to take an additional 3 mm of bone off the distal femur. The knee was brought out in extension I did do a little bit of a release of the IT band and the posterolateral corner take great care to protect the peroneal nerves in order to equalize extension gap. The femur was then sized to a size 65. The AP cutting block was pinned parallel to the epicondylar axis which was 8 degrees of external rotation. She did have a fairly hypoplastic lateral femoral condyle. The box cutting guide was was then placed in the just slight laterally. The box cut was made. The remnants of the medial and lateral menisci were excised. The osteophytes taken off the posterior aspect the femur. Trial femoral component was placed. Tibial tray was pinned Joy external rotation and the drill and stem punch were used to create defect in proximal tibia for the tibial tray. Knee was then trialed and the 10 mm insert fit most appropriately. Due to her deformity I did elect to use a PS plus implant. Attention drawn to the patella. The patella was cleaned of all soft tissue. Patella thickness measured 20 mm in thickness was cut down to 12. It was sized to a size 28 patella. The lug holes were drilled for the 28 patella. Lateral x-rays removed. Patella button was placed. Knee was taken through range of motion patella tracked nicely with no thumbs test. Attention drawn to placing permanent components. All trial components were removed. Bone plug was placed into this femur limit blood loss. Double batch Palacos G cement was mixed. A Biomet Vanguard size 65 left posterior stabilized femoral component, size 71 tibial tray, 810 mm PS plus insert, and a 28 x 8 all poly patella then cemented in place. Knee was brought out into full extension till cement hardened. Final cement check was then performed. The pericapsular tissues were injected with total of 100 cc of Ortho mix. Patient did receive 1 g of tranexamic acid. The tourniquet was then let down for final tourniquet time 63 minutes. Hemostasis assured use electrocautery. Extensor Metros then closed with combination 1 PDS suture #1 Vi cryl suture in a [id number] fashion. Extensor Meclomen checked found to be intact the subcutaneous tissue then closed with 2 Dexon suture in buried erupted fashion skin was closed skin leisa. Leg was then cleaned and dried and a sterile dressing with Xeroform, 4 fours, sterile cast padding, Kody bandage were applied. Patient then transferred to the recovery room in stable condition. Patient tolerated procedure well and there were no complications. Gabe Guzman, my physician environmental emergencies assistant, was present for the entire procedure. His assistance was required for proper patient positioning, prepping and draping, surgical exposure, retraction, perform the technical details of the operation, placement of the implants, closure of the incision site and placement of sterile bandage. I attest to the content of the Intraoperative Record and any orders documented therein. Any exceptions are noted below.
--- NOTE | 2023-11-01 15:09 | Anesthesiology Progress Note ---
Date of Service November 01, 2023 Anesthesia Post Procedure Vital Signs Vital Signs: Temp Pulse Pulse Resp BP Pulse Ox O2 Del Method 11/01/23 14:50 36.7 C 84 17 113/78 92 Room Air 11/01/23 14:40 80 20 108/82 92 Room Air 11/01/23 14:30 81 17 116/76 92 Room Air 11/01/23 14:20 79 16 112/73 92 Room Air 11/01/23 14:12 36.1 C L 83 19 107/62 93 Room Air 11/01/23 09:14 37 C 76 20 159/102 H 95 Room Air Notes Mental Status: alert / awake / arousable Patient Amnestic to Procedure: Yes Nausea / Vomiting: adequately controlled Pain: adequately controlled Airway Patency, RR, SpO2: stable & adequate BP & HR: stable & adequate Hydration State: stable & adequate Neuraxial Anesthesia: was administered and sensory block is resolving Anesthetic Complications: no major complications apparent
--- NOTE | 2023-11-01 16:18 | XRay Report ---
TWO VIEWS LEFT KNEE CLINICAL HISTORY: Postoperative examination. FINDINGS: AP and crosstable lateral portable views of the left knee are obtained. A left knee arthrop lasty is in near anatomic alignment. There has been undersurface remodeling of the patella. No acute fracture is seen. There are expected postoperative changes around the knee including skin clips, soft tissue edema, and subcutaneous gas. IMPRESSION: Expected postoperative changes status post left knee arthroplasty. No acute fracture is s een. ACT 112: Negative or not required by law. Electronically signed by: Antoine Roger M.D. 11/01/2023 4:17 PM
[2023-11-01] MEDS ORDERED: SUCRALFATE 1 GM/10 ML UDC PO PRN (16:32)
[2023-11-01] MEDS ORDERED: ALUMINUM/MAGNESIUM SUSP 30 ML UDC PO PRN (16:32)
[2023-11-01] MEDS ORDERED: METOCLOPRAMIDE HCL INJ 5 MG/ML 2 ML VIAL IV PRN (16:32)
[2023-11-01] MEDS ORDERED: NALOXONE HCL 0.4 MG/1 ML VIAL/CARP IV PRN (16:32)
[2023-11-01] MEDS ORDERED: MUPIROCIN 2% OINT 22 GM TUBE TOP PRN (16:32)
[2023-11-01] MEDS ORDERED: bisacodyL 10 MG SUPP PR PRN (16:32)
[2023-11-01] MEDS ORDERED: MAGNESIUM HYDROXIDE SUSP 30 ML UDC PO PRN (16:32)
[2023-11-01] MEDS: Scopolamine CHECK PATCH PLACEMENT SCH (17:00)
[2023-11-01] MEDS: SODIUM CHLORIDE 0.9% 1,000 ML IV SCH (17:00)
[2023-11-01] MEDS ORDERED: BETAMETHASONE DIP AUG (DIPROLENE) 0.05% CR 15 GM TUBE EXT PRN (17:17)
[2023-11-01] MEDS: KETOROLAC TROMETHAMINE 15 MG/ML VIAL IV SCH (17:33)
[2023-11-01] MEDS: ASCORBIC ACID 500 MG TAB PO SCH (17:36)
[2023-11-01] MEDS: oxyCODONE HCL IR 5 MG TAB (IMMEDIATE RELEASE) PO PRN (18:34)
[2023-11-01] MEDS: ASPIRIN 81 MG ECTAB PO SCH (20:44)
[2023-11-01] MEDS: ceFAZolin 2000MG 2,000 MG/15 ML SYR IV SCH (20:44)
[2023-11-01] MEDS: SENNA 8.6 MG TAB PO SCH (20:45)
[2023-11-01] MEDS: DOCUSATE SODIUM 100 MG CAP PO SCH (20:45)
[2023-11-01] MEDS: TRANEXAMIC ACID / 0.7% NACL 1,000 MG/100 ML BAG IV SCH (20:46)
[2023-11-01] MEDS ORDERED: SENNA 8.6 MG TAB PO SCH (21:00)
[2023-11-01] MEDS: HYDROmorphone INJ 0.5 MG/0.5 ML SYR IV PRN (22:40)
[2023-11-02] MEDS: LEVOTHYROXINE SODIUM 150 MCG TABLET PO SCH (05:40)
[2023-11-02 06:15] LABS: Hematocrit (blood only) 35.4 % (37.0-47.0); Hemoglobin 11.8 g/dl (12.0-16.0); Mean Corpuscular Hemoglobin 30.3 pg (25.0-34.0); Mean Corpuscular Hgb Conc 33.3 g/dL (32.0-36.0); Mean Platelet Volume 10.4 fL (9.4-12.4); Platelet Count 298 K/uL (130-400); RDW Coefficient of Variation 12.7 % (11.5-14.5); RDW Standard Deviation 42.5 fL (36.4-46.3); Red Blood Count 3.89 M/uL (4.20-5.40); White Blood Count 14.73 K/ul (4.8-10.8)
[2023-11-02 06:37] LABS: BUN Creatinine Ratio 24.2 (10-20); Creatinine Clr Calc Pharmacy 76.3 ml/min; Est GFR (African American) 75.1 ml/min; Est GFR (Non-African American) 64.8 ml/min; Potassium 4.1 mmol/L (3.5-5.1)
[2023-11-02] MEDS: MULTIVITAMIN TAB PO SCH (08:05)
[2023-11-02] MEDS: LOSARTAN POTASSIUM 25 MG TAB PO SCH (08:05)
[2023-11-02] MEDS: FLUTICASONE PROPIONATE NA SPR 16 GM BTL SCH (08:05)
[2023-11-02] MEDS: PANTOprazole 40 MG TAB PO SCH (08:05)
[2023-11-02] MEDS: CHOLECALCIFEROL 25 MCG (1000 UNITS) TAB PO SCH (08:06)
[2023-11-02] MEDS: FUROSEMIDE 20 MG TAB PO SCH (08:06)
[2023-11-02] MEDS: CETIRIZINE HCL 10 MG TABLET PO SCH (08:06)
[2023-11-02] MEDS: ATORVASTATIN 40 MG TAB PO SCH (08:07)
[2023-11-02] MEDS: buPROPion XL 150 MG TABCR PO SCH (08:07)
[2023-11-02] MEDS: dexAMETHasone 10 MG in SYRINGE 0 ML IV SCH (08:10)
[2023-11-02] MEDS ORDERED: diphenhydrAMINE Capsule 25 MG CAP PO PRN (08:17)
[2023-11-02] MEDS ORDERED: NON-FORMULARY MEDICATION (Multivitamin With Minerals [Hair,Skin And Nails] Tablet) PO SCH (09:00)
[2023-11-02] MEDS ORDERED: DOCUSATE SODIUM PO SCH (09:00)
--- NOTE | 2023-11-02 11:59 | Orthopedic Progress Note ---
Date of Service November 02, 2023 Assessment & Plan (1) Status post left knee replacement: Overall, she is doing quite well today with good pain control to the left knee. She participated well this morning with physical therapy working on ambulation and range of motion exercises. She is on aspirin for DVT prophylaxis. She can be discharged home later today for formal evaluation with physical therapy. She will follow-up with Dr. Escoto in 2 weeks for postoperative management. Subjective . Елена was seen and evaluated this morning resting comfortably in no apparent distress. She notes that her pain is well-controlled to the left knee. She has been up and out of bed without any significant issues. She participated well today with physical therapy working on ambulation and range of motion exercises. She denies any other concerns today. Review of Systems All systems reviewed & are unremarkable except as noted in HPI & below. Physical Exam . On physical examination of the left knee, dressings are clean, dry, intact. Her leg is out in full extension. She has active plantarflexion dorsiflexion of the left ankle. +2 DP and PT pulses. Less than 2-second capillary refill. Normal sensation. Neurovascular intact. Results & Data Results & Data Laboratory Results . Diagnostic Findings . Postoperative x-rays of the left knee show prosthesis to be in anatomical alignment with no evidence of fracture complication or loosening. PG Care Time/CCT Total # of Minutes Spent Total Time Spent with Patient: Total time spent is greater than 50% in coordination of care (as documented) at patient's floor/unit and/or counseling patient: Coding Level of Care Code 28449 Post Operative Follow-Up Diagnoses Status post left knee replacement Z96.652
--- NOTE | 2023-11-02 12:01 | Discharge Summary ---
Date of Service November 02, 2023 Admission HPI (Per Admitting) . The patient is a 68-year-old female who presents for surgical treatment of her left knee. Discussed several year history of increasing bilateral knee pain discomfort with the left side being a little bit worse than the right. She has been through extensive conservative treatment over the past year including multiple injections which provide very temporary relief only. Describes global pain in the knee. Increased with weightbearing. She has difficulty going up and down steps. She has nighttime pain. She does not like to proceed with left knee replacement. Admission Exam (Per Admitting) . Physical examination shows a pleasant middle-age female. Looks in reasonably good health. Examination of the left knee reveals patient ambulates independently. She got slight valgus alignment to her knee which is increased with weightbearing. She little tenderness laterally. Moderate soft tissue envelope. Small knee effusion. Range of motion 5-1 25. No instability. No pain with hip motion. Principal Diagnosis Same as "Discharge Diagnosis" noted below under Discharge Instructions. Discharge Exam . On physical examination of the left knee, dressings are clean, dry, intact. Her leg is out in full extension. She has active plantarflexion dorsiflexion of the left ankle. +2 DP and PT pulses. Less than 2-second capillary refill. Normal sensation. Neurovascular intact. Discharge Data Procedures Performed Operation Date: 11/01/23 10:40 Actual Procedures p Left Total Knee Arthroplasty(Left) - Servando Escoto MD Ordered Studies 11/01/23 05:00 US - OR guided needle placemen Routine Hospital Course (1) Status post left knee replacement: On November 01, 2023 Елена arrived at [facility] and underwent a left total knee arthroplasty performed by Dr. Escoto with no complications. She had a spinal anesthetic. Postoperatively, she was started on aspirin for DVT prophylaxis and transferred to the general orthopedic floor in stable condition. Her hospital course was uneventful. On postoperative day 1, her vital signs were stable and her pain was well-controlled. She participated well with physical therapy working on ambulation and range of motion exercises. She was then discharged home in stable condition. She will follow-up in [address] Escoto for postoperative management. PG Care Time/CCT Total # of Minutes Spent Total Time Spent with Patient: Total time spent is greater than 50% in coordination of care (as documented) at patient's floor/unit and/or counseling patient: Discharge Plan Discharge Items Patient Disposition: Home - Home Health Services Reason For Visit: LEFT KNEE REPLACEMENT Discharge Diagnosis: left KNee REplacement Activity: Per Instructions section Weightbearing: Full weightbearing Non-emergency contact: Surgeon Call non-emergency contact if: you have any medication questions Follow-up/Referrals: Hannah Stephens CRNP [Primary Care Provider] - Diet: Regular Addtl Attending Provider Instructions: ACTIVITY RECOMMENDATIONS: Physical Therapy: * You will go to physical therapy three times each week for four to six weeks after your surgery in order to regain your knee range of motion and to retrain your knee to work properly. * It is just as important to make sure you are getting your knee perfectly straight as it is to regain your knee bend. * Taking a pain pill an hour before therapy can help you have a more productive and comfortable therapy session. Home Exercise: * You were shown a series of exercises (heel props, heel slides, etc.) in the hospital. Do these exercises three to four times each day including the exercises you were shown in physical therapy. Walking: * Get up and walk several times each day. For the first four weeks, try not to stand or walk for more than one hour at a time. If you do stand or walk for more than one hour, you will not hurt anything, but your knee and leg will likely swell. * As you feel comfortable, you may change from the walker or crutches to a cane and then to independent walking. MEDICATIONS: New Medicine: * You will likely be taking one or more of these medications: 1. Oxycodone - A quick and shorter-acting pain medication. Take one to two tablets every six hours to lessen your pain. 2. Aspirin - Thins your blood to lessen the chance of forming a blood clot. * The most common side effects of pain medicine and iron are nausea and constipation. If nausea or constipation is too much of a problem or if you have any questions about your new medicines or doses, call [facility] at [phone]. We will try to help you manage these issues. "VERY IMPORTANT TO READ AND REVIEW" Pain: * The immediate post-operative period after knee replacement surgery is often quite painful. * You are given a prescription for pain medicine. You should take it, as directed, when you need it, especially before physical therapy and before going to bed. Pain that interferes with sleep is very common and can last several months. * You will likely need pain medicine for the first four to six weeks. It will not stop all of the pain. The pain will lessen and as you feel better, you may change to milder pain medicine such as Tylenol. * The most common side effects of pain medicine are nausea and constipation, so don't take more than you need. SPECIAL CARE INSTRUCTIONS: TEDs/Elastic Stockings: * The white elastic stockings help limit swelling and prevent blood clots from forming in your legs. The more you wear them, the more they work. * Wear them for six weeks after knee replacement surgery and four weeks after partial knee replacement. Incision Site Care: * Remove dressing postoperative day 2 and then shower. Keep direct shower pressure off the incision site. * After showering, cover leisa with dry gauze and change daily or more frequently if the dressing is getting saturated with drainage. * Use the HALI stockings to hold dressing in place. DO NOT apply tape on the skin. * May completely stop using bandage if wound is dry and no drainage * [place] are removed between 2 and 3 weeks post-op. If your follow-up appointment is made before 2 weeks, please have your appointment re- scheduled. It is too early to remove the leisa. Prevention of Infection: * Take antibiotics one hour before any dental cleaning, dental work, urological procedure, gastrointestinal procedure or any invasive surgery in order to prevent your new joint from getting infected. * You may get the antibiotics from the doctor performing the procedure or you may call our office at [phone] before and we will call in a prescription to the pharmacy of your choice. Things to Watch For: * Drainage from the incision site that occurs more than one week after your surgery. * Severely increased knee/leg pain or swelling. * Increased redness at the incision site. * Fever above 102 degrees Fahrenheit. * Unusual chest pain or shortness of breath. * Unusual pain or burning with urination. Call [facility] at [phone] with any of the above problems or if you have any questions about your medicines or recovery. FOLLOW UP VISIT: Make an appointment to see your doctor for approximately two weeks after surgery for a progress check and staple removal by calling the office at [phone]. Pending Studies at Discharge: No Stand-Alone Forms: [facility], Pain - Opioid Pain Management, Smoking Cessation Medications and DC Order Prescriptions: Continued diclofenac sodium 1 % gel 2 g topical QID PRN (Reason: pain) Qty: 800 3RF dicyclomine 10 mg capsule 10 - 20 mg PO Q4H PRN (Reason: IBS) Qty: 360 5RF furosemide 20 mg tablet 20 mg PO QAM Qty: 90 3RF atorvastatin 40 mg tablet 40 mg PO QAM Qty: 90 3RF sucralfate [Carafate] 100 mg/mL suspension 10 ml PO QID PRN (Reason: abdominal discomfort) Qty: 1260 2RF Patient Comments: PT STATES ONLY TAKES NEEDED Rx Instructions: swish in mouth and swallow; use after food/drink levothyroxine 150 mcg tablet 150 mcg PO QAM Qty: 90 3RF irbesartan 75 mg tablet 37.5 mg PO QAM Qty: 90 3RF bupropion HCl 150 mg tablet extended release 24 hr 150 mg PO QAM Qty: 30 0RF oxycodone 5 mg tablet 5 - 10 mg PO Q6 PRN (Reason: pain) Qty: 40 0RF Rx Instructions: Take as needed for pain ondansetron 4 mg tablet,disintegrating 4 mg PO Q8 PRN (Reason: nausea) Qty: 20 1RF Rx Instructions: Take as needed for nausea ketorolac 10 mg tablet 10 mg PO Q6 PRN (Reason: pain) 5 Days Qty: 20 0RF Rx Instructions: Take 4 times per day with food for 5 days to lessen pain and swelling. sennosides [Senokot] 8.6 mg tablet 8.6 mg PO BID 14 Days Qty: 28 0RF Rx Instructions: Take two times a day to prevent/treat constipation acetaminophen [Tylenol Extra Strength] 500 mg tablet 1,000 mg PO TID 30 Days Qty: 180 0RF Rx Instructions: Take 3 times per day to lessen pain. aspirin [Marilu Low Dose Aspirin] 81 mg tablet,delayed release (DR/EC) 81 mg PO BID 45 Days Qty: 90 0RF Rx Instructions: Take to prevent blood clots. cefadroxil 500 mg capsule 500 mg PO BID 7 Days Qty: 14 0RF Rx Instructions: Take 1 cap twice a day to prevent infection cetirizine 10 mg tablet 10 mg PO QAM triamcinolone acetonide [Nasacort] 55 mcg aerosol,spray 1 spray intranasal DAILY Qty: 16.9 0RF Rx Instructions: administer into each nostril cholecalciferol (vitamin D3) 25 mcg (1,000 unit) capsule 25 mcg PO QAM docusate sodium 2 tabs PO DAILY mupirocin 2 % ointment 1 appln TOP UD PRN (Reason: Skin Irritation) Patient Comments: NEEDED betamethasone dipropionate 0.05 % cream 0.05 applic TOP UD PRN (Reason: Skin Irritation) Rx Instructions: Apply a small amount to perineal area twice daily as needed. omeprazole 20 mg capsule,delayed release(DR/EC) 40 mg PO QAM Hair,Skin and Nails Tablet 1 tab PO QAM Krames/Other Patient Handouts: DVT Post Op Prevention Admission Data Admit Date/Time: 11/01/23 14:16 Attending Provider: Servando Escoto Admit Provider: Servando Escoto Primary Care Provider: Hannah Stephens Other Providers: [facility],Home Health Other Interventions: Discharge Summary Assessment (RN) Last Done: 11/02/23 10:27
== END 2023-11-02 11:04 | disposition home health service (06) ==
LOC: PACUINP 08:28 → ASU 08:28 → 3E 16:28